=== PATIENT | male | born 1985 | race African-American/Black ===

== ENCOUNTER 2017-01-18 01:42 | Emergency (ER) | payer MEDICAID ==
[~2017-01-18] VITALS: Ht 175.3 cm; Wt 72.0 kg
[2017-01-18 06:50] LABS: CLARITY URINE CLEAR (CLEAR); COLOR URINE DARK YELLOW (YELLOW); GLUCOSE URINE NEGATIVE (NEGATIVE); KETONES URINE TRACE (NEGATIVE); LEUKOCYTE ESTERASE URINE TRACE (NEGATIVE); NITRITE URINE NEGATIVE (NEGATIVE); OCCULT BLOOD URINE NEGATIVE (NEGATIVE); PH URINE 5.5 (4.5-8.0); PROTEIN URINE NEGATIVE (NEGATIVE)
[2017-01-18 07:06] LABS: BASOPHILS % 0.5 % (0.0-2.0); EOSINOPHILS % 2.5 % (0.0-5.0); HEMATOCRIT. 38.3 % (42.0-52.0); HEMOGLOBIN. 13.2 g/dL (14.0-18.0); MEAN CORPUSCULAR HEMOGLOBIN 27.3 pg (28.0-32.0); MEAN PLATELET VOLUME 8.2 fl (7.4-10.4); MONOCYTES % 8.9 % (2.0-8.0); NEUTROPHILS % 36.1 % (40.0-76.0); PLATELET 181 x1000/uL (130-400); RED BLOOD CELL COUNT 4.84 mill/uL (4.7-6.1); RED CELL DISTRIBUTION WIDTH 13.1 % (11.6-14.6)
[2017-01-18 07:07] LABS: *AMPHETAMINES SCREEN URINE PRESUMTIVE POSITIVE (NEGATIVE); *BARBITURATES SCREEN URINE NEGATIVE (NEGATIVE); *BENZODIAZEPINES SCREEN URINE NEGATIVE (NEGATIVE); *COCAINE SCREEN URINE NEGATIVE (NEGATIVE); CANNABINOID URINE SCREEN NEGATIVE (NEGATIVE); METHADONE URINE SCREEN NEGATIVE (NEGATIVE); OPIATES URINE SCREEN NEGATIVE (NEGATIVE); PHENCYCLIDINE URINE SCREEN NEGATIVE (NEGATIVE)
[2017-01-18 07:16] LABS: CHLORIDE 105 mEq/L (98-107)
[2017-01-18 07:24] LABS: CARBON DIOXIDE 30 mEq/L (21-32); ETHANOL BLOOD < 10 mg/dL
[2017-01-18] MEDS ORDERED: TRAZODONE HCL 100MG TABLET PO SCH (23:45)
[2017-01-19] MEDS: QUETIAPINE FUMARATE 50MG TABLET PO SCH ×2 (00:50→09:00)
[2017-01-19] MEDS ORDERED: POTASSIUM CHLORIDE 20MEQ TABLET SR PO ONE (10:15)
[2017-01-19 10:26] VITALS: BP 113/69
== END 2017-01-19 18:05 | disposition home or self-care (01) ==
LOC: ER 01:42
DX: R45.851 Suicidal ideations (principal); R44.0 Auditory hallucinations; F19.10 Other psychoactive substance abuse, uncomplicated
CPT/HCPCS: 36415; 80053; 80305; 80307; 80329; 81001; 85025; 99284; G0482